=== PATIENT | female | born 1995 | race Caucasian/White ===

== ENCOUNTER 2025-01-14 13:46 | Emergency (ER) | payer MEDICAID ==
[~2025-01-14] VITALS: Ht 170.2 cm; Wt 70.0 kg
[2025-01-14 13:59] VITALS: O2SAT 99
[2025-01-14] MEDS: ONDANSETRON 4MG ODT PO ONE (14:42)
[2025-01-14] MEDS: FAMOTIDINE 20MG TABLET PO ONE (14:42)
[2025-01-14] MEDS: ACETAMINOPHEN 325MG TABLET PO ONE (14:43)
[2025-01-14 16:08] LABS: HEMATOCRIT. 41.4 % (36.0-48.0); HEMOGLOBIN. 13.8 g/dL (12.0-16.0); MEAN PLATELET VOLUME 8.0 fl (7.4-10.4); PLATELET 333 x1000/uL (130-400); RED BLOOD CELL COUNT 4.76 mill/uL (4.2-5.4); RED CELL DISTRIBUTION WIDTH 13.6 % (11.6-14.6)
[2025-01-14 16:15] LABS: HCG SCREEN NEGATIVE
[2025-01-14] MEDS ORDERED: ONDA-239 PO (16:26)
[2025-01-14 16:38] LABS: CREATININE 0.7 mg/dL (0.6-1.0); UREA NITROGEN BLOOD 14 mg/dL (9-23)
[2025-01-14 16:40] LABS: ASPARTATE AMINOTRANSFERASE 21 IU/L (<34); BILIRUBIN DIRECT 0.1 mg/dL (<=3.0); BILIRUBIN TOTAL 0.3 mg/dL (0.1-1.0); PROTEIN TOTAL 7.8 g/dL (6.0-8.3)
[2025-01-14 16:49] VITALS: BP 121/77; PULSE 71; RESP 15; TEMP 36.7; O2SAT 99
[2025-01-14 18:47] LABS: LYMPHOCYTES % MANUAL 7.0 % (20.0-60.0); MONOCYTES % MANUAL 2.0 % (2.0-8.0); NEUTROPHILS % MANUAL 91.0 % (45.0-75.0); PLATELET ESTIMATE NORMAL
== END 2025-01-14 16:49 | disposition home or self-care (01) ==
LOC: ER 13:46
DX: R10.13 Epigastric pain (principal); R11.2 Nausea with vomiting, unspecified; R19.7 Diarrhea, unspecified; F20.9 Schizophrenia, unspecified; F32.A Depression, unspecified; Z79.899 Other long term (current) drug therapy
CPT/HCPCS: 99284; 76705; 80076; 80048; 81025; 84703; 83690; 85025; 36415; Q0162